=== PATIENT | male | born 1960 | race Caucasian/White ===

== ENCOUNTER 2021-03-28 05:48 | Day surgery (SDC) | payer MEDICARE, MEDICAID ==
[~2021-03-28] VITALS: Ht 180.3 cm; Wt 73.2 kg
[2021-03-28] MEDS ORDERED: SODIUM CHLORIDE 0.9% 1,000 ML IV SCH (06:30)
[2021-03-28] MEDS ORDERED: CHLORHEXIDINE 15 ML UDC PO ONE (06:30)
[2021-03-28] MEDS ORDERED: PLEASE ENTER HEIGHT AND WEIGHT MC SCH (06:30)
[2021-03-28] MEDS ORDERED: CHLORHEXIDINE 15 ML UDC ONE (06:31)
[2021-03-28] MEDS ORDERED: BUPIVACAINE/PF 0.5% ONE (06:45)
[2021-03-28] MEDS ORDERED: PROTAMINE SULFATE 10 MG/ML, 5ML ONE (06:45)
[2021-03-28] MEDS ORDERED: THROMBIN 20,000 UNIT VIAL TP ONE (06:45)
[2021-03-28] MEDS ORDERED: HEPARIN 1,000 UNITS/ML, 30ML ONE (06:45)
[2021-03-28] MEDS ORDERED: EPINEPHRINE 1 MG/ML, 1ML ONE (06:46)
[2021-03-28 06:50] VITALS: BP 166/85
[2021-03-28 07:07] VITALS: BP 166/85
[2021-03-28] MEDS ORDERED: ASPI-963 PO (07:11)
[2021-03-28] MEDS ORDERED: METO-95 PO (07:11)
[2021-03-28] MEDS ORDERED: ALBU18HF PO (07:11)
[2021-03-28] MEDS ORDERED: FENTANYL PF 250 MCG/5ML ONE (07:20)
[2021-03-28] MEDS ORDERED: MIDAZOLAM 1 MG/ML, 2ML ONE (07:20)
[2021-03-28 07:28] LABS: BASOPHILS % (AUTO) 1 % (0-1); EOSINOPHILS % (AUTO) 8 % (1-7); LYMPHOCYTES % (AUTO) 15 % (22-44); MEAN CORPUSCULAR HEMOGLOBIN 27.1 pg (27.5-34.5); MEAN CORPUSCULAR HGB CONC 31.9 g/dL (33.2-36.2); MEAN PLATELET VOLUME 7.7 fL (7.4-10.4); MONOCYTES % (AUTO) 14 % (2-9); NEUTROPHILS % (AUTO) 63 % (42-75); PLATELET COUNT 185 x10^3/uL (130-400); RED CELL DISTRIBUTION WIDTH 18.5 % (9.4-14.8)
[2021-03-28 07:38] LABS: ALANINE AMINOTRANSFERASE 18 U/L (12-78); ALBUMIN 3.8 g/dL (3.4-5.0); ANION GAP 13 mmol/L (5-15); CALCIUM 8.4 mg/dL (8.5-10.1); CHLORIDE 101 mmol/L (98-107)
[2021-03-28 07:40] LABS: ALKALINE PHOSPHATASE 143 U/L (45-117); BILIRUBIN,TOTAL 0.6 mg/dL (0.2-1.0); TOTAL PROTEIN 7.7 g/dL (6.4-8.2)
[2021-03-28] MEDS ORDERED: DIAZEPAM 5 MG/ML, 2ML IV PRN ×2 (09:00)
[2021-03-28] MEDS ORDERED: ALBUTEROL SULFATE 2.5 MG/3 ML NPPB PRN (09:00)
[2021-03-28] MEDS ORDERED: ONDANSETRON 2MG/ML, 2ML IVPush PRN (09:00)
[2021-03-28] MEDS ORDERED: hydrALAzine 20 MG/ML, 1ML IV PRN (09:00)
[2021-03-28] MEDS ORDERED: PROMETHAZINE 25 MG/ML, 1ML IV PRN (09:00)
[2021-03-28] MEDS ORDERED: HYDROmorphone 1 MG/ML, 1ML INJ IV PRN (09:00)
[2021-03-28] MEDS ORDERED: KETOROLAC 30 MG/1 ML IV PRN (09:00)
[2021-03-28] MEDS ORDERED: OXYcodone 5 MG/5 ML ORAL.SOL UDC PO PRN (09:00)
[2021-03-28] MEDS ORDERED: FENTANYL PF 100 MCG/2ML IV PRN (09:00)
[2021-03-28] MEDS ORDERED: MEPERIDINE/PF 25MG/0.5ML IVPush PRN (09:00)
[2021-03-28] MEDS ORDERED: LABETALOL 5MG/ML, 20ML IV PRN (09:00)
== END 2021-03-28 15:50 | disposition home or self-care (01) ==
LOC: OUT 05:48
PROVIDERS: ATTEND Surgery
DX: T82.590A Other mechanical complication of surgically created arteriovenous fistula, initial encounter (principal); T82.858A Stenosis of other vascular prosthetic devices, implants and grafts, initial encounter; I12.0 Hypertensive chronic kidney disease with stage 5 chronic kidney disease or end stage renal disease; N18.6 End stage renal disease; J44.9 Chronic obstructive pulmonary disease, unspecified; M10.9 Gout, unspecified; F17.210 Nicotine dependence, cigarettes, uncomplicated; Z79.82 Long term (current) use of aspirin; Z79.899 Other long term (current) drug therapy; Z99.2 Dependence on renal dialysis; Z83.3 Family history of diabetes mellitus; Y83.8 Other surgical procedures as the cause of abnormal reaction of the patient, or of later complication, without mention of misadventure at the time of the procedure
CPT/HCPCS: 35206; 36415; 36561; 36819; 37607; 71045; 77001; 80053; 85025; 93005; C1751; C1894; J0171; J1644; J2250; J2720; J3010; J7030